=== PATIENT | female | born 1985 | race Caucasian/White ===

== ENCOUNTER 2016-12-11 12:38 | Emergency (ER) | payer BC ==
--- NOTE | 2016-12-11 13:48 | RAD ---
HISTORY: Chest pain COMPARISONS: None VIEWS:1: Single frontal portable view of the chest at 1:35 PM FINDINGS: LINES AND TUBES: None. CARDIOMEDIASTINAL SILHOUETTE: The cardiomediastinal silhouette is normal for portable technique. PLEURA: The costophrenic angles are sharp. No pleural abnormalities are noted. LUNG PARENCHYMA: The lungs are clear. ABDOMEN: The upper abdomen is clear. There is no subphrenic gas. BONES AND SOFT TISSUES: No bone or soft tissue abnormalities are noted. IMPRESSION: NO ACTIVE CARDIOPULMONARY DISEASE.
[2016-12-11 14:15] LABS: Hematocrit 40 % (35-47); Hemoglobin 13.8 g/dl (12.0-16.0); Mean Corpuscular HGB Conc 34 g/dl (31-36); Mean Corpuscular Hemoglobin 33 pg (27-31); Mean Corpuscular Volume 97 fL (80-97); Mean Platelet Volume 8 um3 (7.4-10.4); Red Blood Count 4.17 10^6/ul (4.0-5.4); Red Cell Distribution Width 12 % (10.5-15); White Blood Count 7.6 10^3/ul (3.5-10.8)
[2016-12-11 15:17] LABS: ALT 17 U/L (7-52); AST 23 U/L (13-39); Albumin 4.6 g/dL (3.2-5.2); Alkaline Phosphatase 49 U/L (34-104); Anion Gap 9 mmol/L (2-11); BUN/Creatinine Ratio 16.9 (8-20); Blood Urea Nitrogen 13 mg/dL (6-24); CO2 Carbon Dioxide 24 mmol/L (22-32); Calcium 9.3 mg/dL (8.6-10.3); Chloride 104 mmol/L (101-111); EGFR African American 112.4 (>60); EGFR Non-African American 87.4 (>60); Globulin 3.1 g/dL (2-4); Glucose 113 mg/dL (70-100); Potassium 3.4 mmol/L (3.5-5.0); Sodium 137 mmol/L (133-145); Total Protein 7.7 g/dL (6.4-8.9)
[2016-12-11 17:32] LABS: ALT 16 U/L (7-52); AST 22 U/L (13-39); Albumin 4.4 g/dL (3.2-5.2); Alkaline Phosphatase 50 U/L (34-104); Anion Gap 5 mmol/L (2-11); BUN/Creatinine Ratio 16.3 (8-20); Blood Urea Nitrogen 13 mg/dL (6-24); CO2 Carbon Dioxide 26 mmol/L (22-32); Chloride 106 mmol/L (101-111); EGFR African American 107.6 (>60); EGFR Non-African American 83.7 (>60); Glucose 98 mg/dL (70-100); Potassium 3.5 mmol/L (3.5-5.0); Sodium 137 mmol/L (133-145); Total Protein 7.4 g/dL (6.4-8.9)
[2016-12-11 18:03] VITALS: BP 124/72
--- NOTE | 2016-12-11 22:40 | ED ---
Tessa Moscoso Seung-Jae, scribed for Ignacio Graf MD on 12/11/16 at 1406 . HPI Chest Pain - HPI Summary HPI Summary: Pt is a 31 y/o F who presents to ED with c/o CP. CP began at 10:30 this morning and is characterized as tightness and pressure on chest upon breathing. Sx alleviated by nothing. Additionally c/o CURRAN occurring in her confucianist area which began simultaneously with the CP. Pt denies N/V/D. She states that her symptoms have been improved since her arrival to the ED. Pt has a history of vertigo, no history of smoking, and no recent travel histories. - History of Current Complaint Chief Complaint: EDChestPainROMI Time Seen by Provider: 12/11/16 13:06 Hx Obtained From: Patient Onset/Duration: Started Hours Ago, Still Present Time of Onset: 10:30 Timing: Constant Initial Severity: Severe Current Severity: Moderate Pain Intensity: 5 Pain Scale Used: 0-10 Numeric Chest Pain Radiates: No Character: Tightness, Other: - pressuring feel Aggravating Factor(s): Deep Breaths Alleviating Factor(s): Nothing Associated Signs and Symptoms: Positive: Headaches. Negative: Nausea, Vomiting - Allergy/Home Medications Allergies/Adverse Reactions: Allergies Allergy/AdvReac Type Severity Reaction Status Date / Time Sulfa Drugs Allergy Intermediate Hives Verified 04/24/13 14:44 PMH/Surg Hx/FS Hx/Imm Hx Previously Healthy: Yes Endocrine/Hematology History: Denies: Hx Diabetes Cardiovascular History: Denies: Hx Hypertension History: Reports: Other Problems/Disorders - Right collarbone break 12 years ago Denies: Hx Renal Disease Infectious Disease History: Denies: Traveled Outside the [place] in Last 30 Days - Family History Known Family History: Positive: Cardiac Disease - Social History Occupation: Student Alcohol Use: None Hx Substance Use: No Substance Use Type: Reports: None Smoking Status (MU): Never Smoked Tobacco Review of Systems Positive: Chest Pain - pressuring and tightness Negative: Vomiting, Diarrhea, Nausea Positive: Headache All Other Systems Reviewed And Are Negative: Yes Physical Exam Triage Information Reviewed: Yes Vital Signs On Initial Exam: Initial Vitals Temp Pulse Resp BP Pulse Ox 98.3 F 56 16 142/90 100 12/11/16 13:00 12/11/16 13:00 12/11/16 13:00 12/11/16 13:00 12/11/16 13:00 Vital Signs Reviewed: Yes Appearance: Positive: Well-Appearing, No Pain Distress Skin: Positive: Warm, Skin Color Reflects Adequate Perfusion, Dry Head/Face: Positive: Normal Head/Face Inspection Eyes: Positive: Normal ENT: Positive: Normal ENT inspection Neck: Positive: Supple, Nontender Respiratory/Lung Sounds: Positive: Clear to Auscultation, Breath Sounds Present Cardiovascular: Positive: RRR Abdomen Description: Positive: Nontender, Soft Bowel Sounds: Positive: Present Musculoskeletal: Positive: Normal Neurological: Positive: Normal Psychiatric: Positive: Normal Diagnostics - Vital Signs Vital Signs Temp Pulse Resp BP Pulse Ox 12/11/16 13:00 98.3 F 56 16 142/90 100 - Laboratory Lab Results: Lab Results 12/11/16 12/11/16 12/11/16 Range/Units 14:00 14:00 14:00 WBC 7.6 (3.5-10.8) 10^3/ul RBC 4.17 (4.0-5.4) 10^6/ul Hgb 13.8 (12.0-16.0) g/dl Hct 40 (35-47) % MCV 97 (80-97) fL MCH 33 H (27-31) pg MCHC 34 (31-36) g/dl RDW 12 (10.5-15) % Plt Count 200 (150-450) 10^3/ul MPV 8 (7.4-10.4) um3 Neut % (Auto) 76.0 (38-83) % Lymph % (Auto) 16.2 L (25-47) % Sandoval % (Auto) 7.0 (1-9) % Eos % (Auto) 0.4 (0-6) % Baso % (Auto) 0.4 (0-2) % Absolute Neuts (auto) 5.8 (1.5-7.7) 10^3/ul Absolute Lymphs (auto) 1.2 (1.0-4.8) 10^3/ul Absolute Monos (auto) 0.5 (0-0.8) 10^3/ul Absolute Eos (auto) 0 (0-0.6) 10^3/ul Absolute Basos (auto) 0 (0-0.2) 10^3/ul Absolute Nucleated RBC 0 10^3/ul Nucleated RBC % 0 D-Dimer, Quantitative < 200 (Less Than 230) ng/mL Sodium (133-145) mmol/L Potassium (3.5-5.0) mmol/L Chloride (101-111) mmol/L Carbon Dioxide (22-32) mmol/L Anion Gap (2-11) mmol/L BUN (6-24) mg/dL Creatinine (0.51-0.95) mg/dL Est GFR ( Amer) (>60) Est GFR (Non-Af Amer) (>60) BUN/Creatinine Ratio (8-20) Glucose (70-100) mg/dL Lactic Acid 1.1 (0.5-2.0) mmol/L Calcium (8.6-10.3) mg/dL Total Bilirubin (0.2-1.0) mg/dL AST (13-39) U/L ALT (7-52) U/L Alkaline Phosphatase (34-104) U/L Troponin I (<0.04) ng/mL Total Protein (6.4-8.9) g/dL Albumin (3.2-5.2) g/dL Globulin (2-4) g/dL Albumin/Globulin Ratio (1-3) Beta HCG, Quant mIU/mL 12/11/16 12/11/16 Range/Units 14:00 17:05 WBC (3.5-10.8) 10^3/ul RBC (4.0-5.4) 10^6/ul Hgb (12.0-16.0) g/dl Hct (35-47) % MCV (80-97) fL MCH (27-31) pg MCHC (31-36) g/dl RDW (10.5-15) % Plt Count (150-450) 10^3/ul MPV (7.4-10.4) um3 Neut % (Auto) (38-83) % Lymph % (Auto) (25-47) % Sandoval % (Auto) (1-9) % Eos % (Auto) (0-6) % Baso % (Auto) (0-2) % Absolute Neuts (auto) (1.5-7.7) 10^3/ul Absolute Lymphs (auto) (1.0-4.8) 10^3/ul Absolute Monos (auto) (0-0.8) 10^3/ul Absolute Eos (auto) (0-0.6) 10^3/ul Absolute Basos (auto) (0-0.2) 10^3/ul Absolute Nucleated RBC 10^3/ul Nucleated RBC % D-Dimer, Quantitative (Less Than 230) ng/mL Sodium 137 137 (133-145) mmol/L Potassium 3.4 L 3.5 (3.5-5.0) mmol/L Chloride 104 106 (101-111) mmol/L Carbon Dioxide 24 26 (22-32) mmol/L Anion Gap 9 5 (2-11) mmol/L BUN 13 13 (6-24) mg/dL Creatinine 0.77 0.80 (0.51-0.95) mg/dL Est GFR ( Amer) 112.4 107.6 (>60) Est GFR (Non-Af Amer) 87.4 83.7 (>60) BUN/Creatinine Ratio 16.9 16.3 (8-20) Glucose 113 H 98 (70-100) mg/dL Lactic Acid (0.5-2.0) mmol/L Calcium 9.3 9.0 (8.6-10.3) mg/dL Total Bilirubin 1.00 0.80 (0.2-1.0) mg/dL AST 23 22 (13-39) U/L ALT 17 16 (7-52) U/L Alkaline Phosphatase 49 50 (34-104) U/L Troponin I 0.00 0.00 (<0.04) ng/mL Total Protein 7.7 7.4 (6.4-8.9) g/dL Albumin 4.6 4.4 (3.2-5.2) g/dL Globulin 3.1 3.0 (2-4) g/dL Albumin/Globulin Ratio 1.5 1.5 (1-3) Beta HCG, Quant < 0.60 < 0.60 mIU/mL Result Diagrams: 12/11/16 14:00 12/11/16 17:05 Lab Statement: Any lab studies that have been ordered have been reviewed, and results considered in the medical decision making process. - Radiology Chest XR Xray Interpretation: No Acute Changes - Impression: No active cardiopulmonary disease. Radiology Interpretation Completed By: Radiologist - EKG 1300 Cardiac Rate: Bradycardia EKG Rhythm: Sinus Bradycardia - [address] Segment: Non-Specific - T wave flattening Chest Pain Course/Dx - Course Course Of Treatment: Ms. Dean presented with mild CP that was pleuritic in nature. She R/U'd with negative d-dimer and delayed troponin testing as well as CXR and ecg. I recommended F/U if it persists. - Diagnoses Provider Diagnoses: Chest pain Discharge - Discharge Plan Condition: Stable Disposition: HOME Patient Education Materials: Chest Pain (ED) Referrals: Glenn Sebastian MD [Primary Care Provider] - 3 Days The documentation as recorded by the Tessa henderson Seung-Jae accurately reflects the service I personally performed and the decisions made by , Ignacio Graf MD.
== END 2016-12-11 18:04 | disposition home or self-care (01) ==
LOC: ED 12:38
DX: R51 Headache (principal); R07.9 Chest pain, unspecified
CPT/HCPCS: 36415; 71010; 80053; 83605; 84484; 84702; 85025; 85379; 93005; 99282

== ENCOUNTER 2018-11-26 02:45 | Inpatient (IN) | payer BC ==
[2018-11-26] MEDS ORDERED: Lactated Ringers 1000 ML Bag* 1,000 ML IV ONE (02:58)
[2018-11-26] MEDS ORDERED: Buffered Lidocaine 1% SYRIN* 1 ML/SYRINGE INTRADERM ONE (02:58)
[2018-11-26] MEDS ORDERED: Lactated Ringers 1000 ML Bag* 1,000 ML IV SCH ×2 (03:00→05:00)
--- NOTE | 2018-11-26 03:19 | HP ---
General Information - Reason for Visit Labor - General Information Maternal Age: 28 Grav: 4 Para: 2 SAB: 0 IEA: 1 Estimated Due Date: 08/29/14 Determined By: LMP Gestational Age in Weeks/Days: 35+5 Maternal Blood Type and Rh: O Positive - Results this Serology/RPR Result: Non-Reactive Rubella Result: Immune HBsAg Result: Negative HIV Result: Negative GBS Culture Result: Negative Past Medical History Delivery History: Hx Complicated Vaginal Delivery Delivery History Comment: Hx of PPROM, PTB at 35+6 Past Medical History Comment: Migraines Back Pain Depression Past Surgical History Comment: wisdom tooth extraction Family History Comment: HTN, hypercholesterolemia Review of Systems Constitutional: Uncomfortable CV Complaint: No Respiratory: Shortness of Breath: No Gastrointestinal: No Nausea/Vomiting Genitourinary: Leaking Fluid, No Dysuria, No Bleeding Musculoskeletal: Contractions Neurological: No Headache, No Visual Changes Movement: Normal Exam Allergies/Adverse Reactions: Allergies Sulfa (Sulfonamide Antibiotics) Allergy (Intermediate, Verified 11/26/18 03:18) Hives Temp 99.3, 153/92 (pain), HR 104, 99.3, RR 18 - Measurements Height: 5 ft 5 in Weight: 166 lb Body Mass Index (BMI): 27.6 Pre- Weight: 138 lb - Exam Breast: Breast Exam Deferred CVA: No CVA Tenderness Extremities: No Edema Heart: Normal Rhythm/Heart Sounds HEENT: No Significant Findings Lungs: Clear Bilaterally Rectal: Rectal Exam Deferred - Abdominal Exam Abdomen Exam: Non-Tender Targeted Exam Findings Estimated Weight: 5lbs Cervical Exam: 4cm Effacement: 100% Station: -1 Presenting Part: Vertex Membrane Status: SROM Amniotic Fluid Evaluation: Clear Bleeding/Discharge: Bloody Show EFM Findings - External Monitor Findings Baseline Heart Rate: 150 External Monitor Findings: Accelerations Present, Variability Moderate External Monitor Findings Comment: No evidence of metabolic acidemia Contractions: Regular, Strong, 45-90 Seconds - q2 minutes Assessment/Plan - Assessment IUP@35+5 in active labor GBS negative, O+ PPROM - clear, PTL No evidence of acidemia Regular contractions - Obstetrical Risk Factors Obstetrical Risk Factors: - Plan Plan: Admit - Anticipate Vaginal Delivery Plan Comment: Admit to L&D PRICER BAGGER to be present for delivery Epidural now. Anesthesia aware. Anticipate progression to . - Date/Time of Admission Date of Admission: 11/26/18 Time of Admission: 03:05
[2018-11-26 03:22] LABS: ABS Eosinophils 0.1 10^3/ul (0-0.6); ABS Lymphocytes 1.9 10^3/ul (1.0-4.8); ABS Monocytes 0.9 10^3/ul (0-0.8); ABS Neutrophils 10.1 10^3/ul (1.5-7.7); Eosinophil % 0.4 %; Hematocrit 38 % (35-47); Lymphocyte % 14.5 %; Mean Corpuscular HGB Conc 35 g/dL (31-36); Mean Corpuscular Hemoglobin 33 pg (27-31); Mean Corpuscular Volume 94 fL (80-97); Mean Platelet Volume 8.8 fL (7.4-10.4); Platelet Count 233 10^3/uL (150-450); Red Blood Count 3.99 10^6 /uL (3.70-4.87); Red Cell Distribution Width 13 % (10-15)
[2018-11-26] MEDS ORDERED: Oxytocin in LR* 20 UNITS/1,000 ML BAG IVPB ONE (03:36)
[2018-11-26] MEDS ORDERED: Witch Hazel PAD* JAR TOPICAL PRN (04:02)
[2018-11-26] MEDS ORDERED: Glycerin ADULT SUPP PR PRN (04:02)
[2018-11-26] MEDS ORDERED: Dibucaine 1% 28.35 GM TUBE PR PRN (04:02)
[2018-11-26] MEDS: Ibuprofen TAB* 600 MG PO PRN ×3 (04:53→18:24)
[2018-11-26] MEDS ORDERED: Oxytocin in LR* 20 UNITS/1,000 ML BAG IVPB SCH (05:00)
[2018-11-26] MEDS: Acetaminophen TAB* 325 MG PO PRN ×3 (07:55→22:56)
[2018-11-26] MEDS: Docusate CAP* 100 MG PO SCH ×3 (07:55→20:25)
[2018-11-26] MEDS ORDERED: HEPATITIS A VACCINE 1440 UNIT/ML IM ONE (12:00)
--- NOTE | 2018-11-26 21:40 | PROCNOTE ---
[facility] OB: Delivery Note - Delivery A Date of : 11/26/18 Time of : 03:33 [place] Sex: Male Weight at : 5 lb 13 oz Score 1 Minute: 8 Score 5 Minutes: 9 Gestational Age in Weeks and Days at Delivery: 261 Weeks and 3 Days Delivery Method: Spontaneous Vaginal Labor: Spontaneous Did Patient attempt ?: N/A, No Previous Amniotic Fluid: Clear Estimated Blood Loss: 350 Anesthesia/Analgesia: None Delivered By: Lolly Henderson Nursery Level of Nursery: Regular/Bedside - Perineum Perineal Injury: None/Intact - Events Delivery Events of Note: Pitocin Only After Delivery, Precipitous Delivery - Additional Delivery Notes Additional Delivery Notes: On 11/26, at 35+5 weeks gestation, this 33 yo female, under no anesthesia, delivered a viable male weighing 5lbs 13ounces with 's of 8 and 9 at 1 and 5 minutes. SHE[employer]ST[employer] HELPER present at delivery given GA at delivery. Delivery was via , infant was placed on mom's chest, cord was cut and clamped by FOB after pulsations ceased. Cord blood was collected and sent. Spontaneous delivery of an intact placenta with 3 vessel cord followed via jeanette. Pitocin was initiated. Fundus firm with minimal bleeding noted; EBL 350 mL. After careful insepction of the perineum, pt was found to be intact. Infant and mom in stable condition.
[2018-11-27] MEDS: Ibuprofen TAB* 600 MG PO PRN ×3 (00:27→16:02)
[2018-11-27] MEDS: Acetaminophen TAB* 325 MG PO PRN ×2 (04:01→12:30)
[2018-11-27 06:59] LABS: ABS Eosinophils 0.1 10^3/ul (0-0.6); ABS Lymphocytes 1.7 10^3/ul (1.0-4.8); ABS Monocytes 0.6 10^3/ul (0-0.8); ABS Neutrophils 7.5 10^3/ul (1.5-7.7); Eosinophil % 1.3 %; Hematocrit 33 % (35-47); Hemoglobin 11.7 g/dL (12.0-16.0); Lymphocyte % 17.4 %; Mean Corpuscular HGB Conc 36 g/dL (31-36); Mean Corpuscular Hemoglobin 34 pg (27-31); Mean Corpuscular Volume 94 fL (80-97); Mean Platelet Volume 8.3 fL (7.4-10.4); Platelet Count 195 10^3/uL (150-450); Red Cell Distribution Width 13 % (10-15)
[2018-11-27] MEDS: Docusate CAP* 100 MG PO SCH ×3 (07:55→20:16)
[2018-11-27] MEDS: Ferrous Gluconate TAB* 324 MG TAB PO SCH (09:53)
[2018-11-27] MEDS: Simethicone TAB* 80 MG TAB.CHEW PO SCH (10:03)
[2018-11-28] MEDS: Ibuprofen TAB* 600 MG PO PRN ×3 (00:29→14:43)
[2018-11-28] MEDS: Docusate CAP* 100 MG PO SCH ×2 (07:52→14:43)
[2018-11-28] MEDS ORDERED: LANOLIN TOPICAL PRN (08:18)
[2018-11-28 09:16] VITALS: BP 127/76
[2018-11-28] MEDS: Ferrous Gluconate TAB* 324 MG TAB PO SCH (17:05)
== END 2018-11-28 17:26 | disposition home or self-care (01) | DRG 560 ==
LOC: MCHOBOUT 02:45 → MCHOB 03:05
PROVIDERS: ADMIT Advanced Practice Midwife; ATTEND Advanced Practice Midwife
PROC: 10E0XZZ Delivery of Products of Conception, External Approach (ICD-10-PCS; principal; 2018-11-26)
PROC: 4A1HXCZ Monitoring of Products of Conception, Cardiac Rate, External Approach (ICD-10-PCS; 2018-11-26)
DX: O42.013 Preterm premature rupture of membranes, onset of labor within 24 hours of rupture, third trimester (principal); O60.13X0 Preterm labor second trimester with preterm delivery third trimester, not applicable or unspecified; Z37.0 Single live birth; O62.3 Precipitate labor; Z3A.35 35 weeks gestation of pregnancy; Z88.2 Allergy status to sulfonamides
CPT/HCPCS: 36415; 85025; 86850; 86900; 86901; 90632; A9270-GY